=== PATIENT | male | born 1985 | race Caucasian/White ===

== ENCOUNTER 2018-05-02 22:01 | Emergency (ER) | payer BC ==
[~2018-05-02] VITALS: Ht 172.7 cm; Wt 89.4 kg
[2018-05-02 22:31] VITALS: BP 131/89; Ht 172.7 cm; Wt 89.4 kg
== END 2018-05-03 00:45 | disposition home or self-care (01) ==
LOC: ED 22:01
DX: S61.012A Laceration without foreign body of left thumb without damage to nail, initial encounter (principal); W26.0XXA Contact with knife, initial encounter; Y93.89 Activity, other specified; Y92.89 Other specified places as the place of occurrence of the external cause; Y99.8 Other external cause status

== ENCOUNTER 2020-07-21 01:12 | Emergency (ER) | payer BC ==
[~2020-07-21] VITALS: Ht 170.2 cm; Wt 88.5 kg
[2020-07-21 01:19] VITALS: Ht 170.2 cm; Wt 88.5 kg
[2020-07-21 02:29] VITALS: BP 123/72
== END 2020-07-21 03:23 | disposition home or self-care (01) ==
LOC: ED 01:12
DX: S01.01XA Laceration without foreign body of scalp, initial encounter (principal); W01.198A Fall on same level from slipping, tripping and stumbling with subsequent striking against other object, initial encounter; Y93.89 Activity, other specified; Y92.89 Other specified places as the place of occurrence of the external cause; Y99.8 Other external cause status
CPT/HCPCS: 90715; J2001; Q0162

== ENCOUNTER 2020-07-23 09:01 | Emergency (ER) | payer BC ==
[~2020-07-23] VITALS: Ht 170.2 cm; Wt 90.3 kg
[2020-07-23 09:07] VITALS: Ht 170.2 cm; Wt 90.3 kg
[2020-07-23 09:35] VITALS: BP 136/85
== END 2020-07-23 09:35 | disposition home or self-care (01) ==
LOC: ED 09:01
DX: S01.01XD Laceration without foreign body of scalp, subsequent encounter (principal); W01.0XXD Fall on same level from slipping, tripping and stumbling without subsequent striking against object, subsequent encounter